=== PATIENT | female | born 1940 | race Caucasian/White ===

== ENCOUNTER 2016-10-26 11:00 | Emergency (ER) | payer MEDICARE, OTHER ==
[~2016-10-26] VITALS: Ht 157.5 cm; Wt 55.0 kg
[~2016-10-26 11:00] MED LIST: ACET1TAB40 PO; ALPR0.254 PO; EVER10TA PO; EXEM25TA PO; OLME5TAB4 PO; PANT40TA4 PO
[2016-10-26 11:04] VITALS: Ht 157.5 cm; Wt 55.0 kg
[2016-10-26] MEDS ORDERED: SOD CHLORIDE 0.9% 500 ML IV STA (12:33)
[2016-10-26 13:10] LABS: HEMATOCRIT 18.2 % (37.0-47.0); MEAN CORPUSCULAR HEMOGLOBIN 28.5 pg (29.0-33.0); MEAN CORPUSCULAR HGB CONC 32.9 g/dl (32.0-37.0); MEAN CORPUSCULAR VOLUME 86.6 fl (82.0-101.0); MEAN PLATELET VOLUME 8.6 fl (7.4-10.4); PLATELET COUNT 261 10^3/UL (140-440); RED CELL DISTRIBUTION WIDTH 21.4 % (11.5-14.5); UNCORRECTED WBC 10.1 10^3/ul (4.8-10.8)
[2016-10-26 13:13] LABS: CONDITION 1; LH ANALYZER COMMENTS 1
[2016-10-26 13:17] LABS: INR 1.08; PT RATIO 1.1
[2016-10-26 13:18] LABS: PARTIAL THROMBOPLASTIN TIME 33.2 Sec (25.0-35.0)
[2016-10-26] MEDS ORDERED: OLME40TA14 PO (13:19)
[2016-10-26] MEDS ORDERED: FER325 PO (13:20)
[2016-10-26] MEDS ORDERED: SOD CHLORIDE 0.9% 250 ML IV ONE (13:32)
[2016-10-26 13:34] LABS: ALBUMIN 2.8 g/dl (3.3-4.9); CHLORIDE 108 mmol/L (97-110); POTASSIUM 3.8 mmol/L (3.5-5.1); SODIUM 141 mmol/L (135-144)
[2016-10-26 13:36] LABS: ANION GAP 13 (8-16); ASPARTATE AMINO TRANSFERASE 66 IU/L (15-46); BILIRUBIN,INDIRECT 0.3 mg/dl (0-1.1); BILIRUBIN,TOTAL 0.3 mg/dl (0.2-1.3); CARBON DIOXIDE 24 mmol/L (21-31); CREATININE 0.83 mg/dl (0.44-1.00)
[2016-10-26 13:37] LABS: ALANINE AMINOTRANSFERASE 41 IU/L (13-69); ALKALINE PHOSPHATASE 162 IU/L (42-121); BLOOD UREA NITROGEN 21 mg/dl (7-20); CALCIUM 8.5 mg/dl (8.4-10.2); GLUCOSE 102 mg/dl (70-220); TOTAL PROTEIN 5.6 g/dl (6.1-8.1)
[2016-10-26 13:51] LABS: TROPONIN-I < 0.010 ng/ml (0.00-0.12)
[2016-10-26 14:34] LABS: BASOPHIL # 0.1 10^3/ul (0.0-0.1); EOSINOPHILS # 0.5 10^3/ul (0.0-0.5); LYMPHOCYTES # 1.4 10^3/ul (0.8-2.9); MONOCYTE # 1.4 10^3/ul (0.3-0.9); MYELOCYTES # 0.2; NEUTROPHIL # 5.4 10^3/ul (1.6-7.5)
--- NOTE | 2016-10-26 15:12 | ERD ---
ER Documentation Chief Complaint Date/Time DATE: 10/26/16 TIME: 15:10 Chief Complaint SENT BY PMD FOR Hb 6.5 HPI This is a 75-year-old female with a history of breast cancer who presents to the emergency room for evaluation of a low hemoglobin. This patient was sent in by her oncologist, Dr. duncan for evaluation of low hemoglobin. The patient is denying any dark stools, and has no complaints of chest pain or shortness of breath at this time. She states that she has gotten a blood transfusion in the past ROS All systems reviewed and are negative except as per history of present illness. Medications Home Meds Active Scripts Pantoprazole* (Pantoprazole*) 40 Mg Tabec, 40 MG PO BID@06,18 for 30 Days Prov:EVERETT ESCOBEDO MD 12/20/15 Reported Medications Ferrous Sulfate* (Ferrous Sulfate*) 325 Mg Tabec, 325 MG PO BID, TAB 10/26/16 Olmesartan Medoxomil (Benicar) 40 Mg Tablet, 40 MG PO DAILY, #30 TAB 10/26/16 Exemestane* (Exemestane*) 25 Mg Tablet, 25 MG PO DAILY, TAB 11/25/15 Everolimus (Afinitor) 10 Mg Tablet, 10 MG PO DAILY, #30 TAB PER PT STOPPED TEMPORARY 11/25/15 Alprazolam* (Alprazolam*) 0.25 Mg Tablet, 0.25 MG PO DAILY, TAB 04/22/15 Acetaminophen-Codeine* (Acetaminophen-Cod #3*) 300-30 Mg Tab, 1 TAB PO DAILY for PAIN, TAB 04/22/15 Discontinued Reported Medications Olmesartan Medoxomil (Benicar) 5 Mg Tablet, PO DAILY, TAB 04/22/15 Allergies Allergies: Coded Allergies: erythromycin base (Verified Allergy, Unknown, upset stomach, 11/25/15) tetracycline (Verified Allergy, Unknown, upset stomach, 11/25/15) PMhx/Soc History of Surgery: Yes (Gall bladder surgery 1971, Hysterectomy 20 yrs. ago) Anesthesia Reaction: No Hx Neurological Disorder: No Hx Respiratory Disorders: Yes (Has lung cancer, metastasis from breast cancer.) Hx Cardiac Disorders: No Hx Psychiatric Problems: No Hx Miscellaneous Medical Probl: No Hx Alcohol Use: No Hx Substance Use: No Hx Tobacco Use: No Physical Exam Vitals Vital Signs Date Time Temp Pulse Resp B/P Pulse Ox O2 Delivery O2 Flow Rate FiO2 10/26/16 11:04 97.8 69 18 97/53 96 Physical Exam INITIAL VITAL SIGNS: Reviewed by me GENERAL: The patient is well developed and appropriate for usual state of health in no apparent distress HEENT: Pupils equal, round, and reactive to light. EOMI. There is no scleral icterus. NECK: C-spine is soft and supple, there is no meningismus. There is no cervical lymphadenopathy. LUNGS: Clear to auscultation bilaterally. There are no rales, wheezes or rhonchi. HEART: Regular rate and rhythm, no murmurs, clicks, rubs or gallops. ABDOMEN: Soft, non-tender, non-distended. There are bowel sounds in all four quadrants. No rebound or guarding. EXTREMITIES: There is no peripheral cyanosis or edema. No focal swelling or erythema. NEUROLOGICAL: The patient moves all four extremities with 5/5 strength. Cranial nerves II - XII are intact. Normal gait. Alert and oriented SKIN: There is no apparent rash or petechiae. HEME/LYMPHATIC: There is no evidence of excessive bruising or lymphedema. PSYCHIATRIC: The patient does not appear anxious or depressed. Result Diagram: 10/26/16 1245 10/26/16 1245 Results 24 hrs Laboratory Tests Test 10/26/16 12:45 Activated Partial Thromboplast Time 33.2Sec Alanine Aminotransferase (ALT/SGPT) 41IU/L Albumin 2.8g/dl Albumin/Globulin Ratio 1.00 Alkaline Phosphatase 162IU/L Anion Gap 13 Aspartate Amino Transf (AST/SGOT) 66IU/L Band Neutrophils % 6.0% Basophils # 0.110^3/ul Basophils % 1.0% Blood Morphology Comment Blood Urea Nitrogen 21mg/dl Calcium Level 8.5mg/dl Carbon Dioxide Level 24mmol/L Chloride Level 108mmol/L Creatinine 0.83mg/dl Differential Comment MANUAL DIFF Direct Bilirubin 0.00mg/dl Eosinophils # 0.510^3/ul Eosinophils % 5.0% Globulin 2.80g/dl Glucose Level 102mg/dl Hematocrit 18.2% Hemoglobin 6.0g/dl INR International Normalized Ratio 1.08 Indirect Bilirubin 0.3mg/dl Lipase 95U/L Lymphocytes # 1.410^3/ul Lymphocytes % 14.0% Mean Corpuscular Hemoglobin 28.5pg Mean Corpuscular Hemoglobin Concent 32.9g/dl Mean Corpuscular Volume 86.6fl Mean Platelet Volume 8.6fl Metamyelocytes # 0.3 Metamyelocytes % 3.0% Monocytes # 1.410^3/ul Monocytes % 14.0% Myelocytes # 0.2 Myelocytes % 2.0% Neutrophils # 5.410^3/ul Neutrophils % 53.0% Nucleated Red Blood Cells # 10^3/ul Nucleated Red Blood Cells % 1.0/100WBC Platelet Count 60803^3/UL Potassium Level 3.8mmol/L Promyelocytes # 0.2 Promyelocytes % 2.0% Prothrombin Time 14.0Sec Prothrombin Time Ratio 1.1 Red Blood Count 2.1010^6/ul Red Cell Distribution Width 21.4% Sodium Level 141mmol/L Total Bilirubin 0.3mg/dl Total Protein 5.6g/dl Troponin I < 0.010ng/ml White Blood Count 10.110^3/ul Current Medications Medications (Trade) Dose Ordered Sig/Burak Route PRN Reason Start Time Stop Time Status Last Admin Dose Admin Sodium Chloride 500 ml @ 500 mls/hr Q1H STAT IV 10/26/16 12:33 10/26/16 13:32 DC 10/26/16 13:30 Sodium Chloride (NS) 250 ml @ 0 mls/hr Q0M ONCE IV 10/26/16 13:32 10/26/16 13:34 DC Procedures/MDM This 75-year-old female presents to the emergency room for evaluation of generalized weakness. She was sent by her oncologist for a low hemoglobin. We carolann lab work urine that does show she has a hemoglobin of 6. I did contact this patient's oncologist, Dr. duncan who states this patient can receive 2 units of packed red blood cells in the emergency room. He states that he tried to get this patient transfuse as an outpatient however he was refused. This patient is in no acute distress at this time will be discharged home on her blood transfusions complete. Critical Care: Time: 33 minutes Treatments/Evaluations: Close monitoring and treatment of unstable vital signs, cardiorespiratory, and neurologic status, while maintaining tight balance of fluid, respiratory, and cardiac interventions, blood product administration. Departure Diagnosis: Primary Impression: Normocytic anemia Additional Impression: Fatigue Condition: Stable LEXIS STANLEY DO Oct 26, 2016 15:12
[2016-10-26 21:20] VITALS: BP 151/78; PULSE 85; RESP 16; TEMP 97.8
[2016-10-27 07:56] LABS: WHITE BLOOD COUNT 10.1 10^3/ul (4.8-10.8)
== END 2016-10-26 21:20 | disposition home or self-care (01) ==
LOC: E/R 11:00
DX: D64.9 Anemia, unspecified (principal); R53.83 Other fatigue; Z85.118 Personal history of other malignant neoplasm of bronchus and lung; Z85.3 Personal history of malignant neoplasm of breast; Z85.830 Personal history of malignant neoplasm of bone
CPT/HCPCS: 36430; 80053; 83690; 84484; 85025; 85610; 85730; 86644; 86850; 86900; 86901; 86920; 93005; J7040; P9016; 36415

== ENCOUNTER 2016-11-18 10:17 | Inpatient (IN) | payer MEDICARE, OTHER ==
[~2016-11-18] VITALS: Ht 157.5 cm; Wt 60.0 kg
[~2016-11-18 10:17] MED LIST changes: +FER325 PO; +OLME40TA14 PO; -OLME5TAB4 PO
[2016-11-18 10:23] VITALS: Ht 157.5 cm; Wt 60.0 kg
[2016-11-18] MEDS ORDERED: SOD CHLORIDE 0.9% 1,000 ML IV STA (10:27)
[2016-11-18] MEDS ORDERED: CEFEPIME 2GM/50 ML (PMX) 50 ML IVPB STA (10:27)
[2016-11-18] MEDS ORDERED: VANCOMYCIN 1 GM (PMX) 250 ML IVPB ONE (10:30)
--- NOTE | 2016-11-18 10:57 | RADRPT ---
PROCEDURE: XR Chest. CLINICAL INDICATION: Shortness of breath TECHNIQUE: Chest AP portable. COMPARISON: 12/17/2015 FINDINGS: The mediastinal structures are unremarkable. There is calcification of the thoracic aorta (consiste nt with atherosclerosis). The heart is normal in size and configuration. The pulmonary vascularity is normal. There is a RLL consolidation. There is left basilar subsegmental atelectasis There is a small right pleural effusion. There are senescent changes of the axial skeleton. IMPRESSION: Calcification of the thoracic aorta (consistent with atherosclerosis) RLL patchy consolidation (query pneumonia) Small right pleural effusion Left basilar subsegmental atelectasis RPTAT: HGDB .Niall Mccann MD, Date Time Electronically viewed and signed by .Niall Mccann MD, on 11/18/2016 10:57 .B/
[2016-11-18 11:23] LABS: BASOPHILS % 0.4 % (0.0-2.0); EOSINOPHILS # 0.3 10^3/ul (0.0-0.5); EOSINOPHILS % 5.4 % (0.0-7.0); HEMATOCRIT 42.3 % (37.0-47.0); HEMOGLOBIN 13.1 g/dl (12.0-16.0); LYMPHOCYTES # 2.4 10^3/ul (0.8-2.9); LYMPHOCYTES % 44.1 % (15.0-51.0); MEAN CORPUSCULAR VOLUME 90.4 fl (82.0-101.0); MEAN PLATELET VOLUME 10.7 fl (7.4-10.4); MONOCYTE # 0.6 10^3/ul (0.3-0.9); MONOCYTES % 11.2 % (0.0-11.0); NEUTROPHIL # 2.1 10^3/ul (1.6-7.5); NEUTROPHILS % 38.5 % (39.0-77.0); PLATELET COUNT 186 10^3/UL (140-415); RED BLOOD COUNT 4.68 10^6/ul (4.20-5.40); RED CELL DISTRIBUTION WIDTH 21.6 % (11.5-14.5); WHITE BLOOD COUNT 5.4 10^3/ul (4.8-10.8)
[2016-11-18 11:28] LABS: ALBUMIN 2.9 g/dl (3.3-4.9)
[2016-11-18 11:29] LABS: INR 0.91; PROTIME 12.3 Sec (12.2-14.2)
[2016-11-18 11:31] LABS: ALBUMIN/GLOBULIN RATIO 0.82; CREATININE 0.74 mg/dl (0.44-1.00); TOTAL PROTEIN 6.4 g/dl (6.1-8.1)
[2016-11-18 11:32] LABS: CALCIUM 9.1 mg/dl (8.4-10.2)
[2016-11-18 11:46] LABS: TROPONIN-I 0.015 ng/ml (0.00-0.12)
[2016-11-18] MEDS ORDERED: ONDANSETRON 4 MG INJ IV STA (12:19)
[2016-11-18] MEDS ORDERED: morphine 4 MG/ML VIAL IV STA (12:19)
[2016-11-18] MEDS ORDERED: ONDANSETRON 4 MG INJ IV PRN ×3 (13:30→21:30)
[2016-11-18] MEDS ORDERED: ACETAMINOPHEN 325 MG TAB PO PRN (13:30)
[2016-11-18] MEDS ORDERED: ACETAMINOPHEN 120 MG SUPP ONE (13:52)
[2016-11-18 14:24] VITALS: PULSE 80; TEMP 97.1
--- NOTE | 2016-11-18 14:42 | ERA ---
ER Documentation Chief Complaint Date/Time DATE: 11/18/16 TIME: 14:39 Chief Complaint SOB since 929 HPI Patient is a 75-year-old female with breast cancer and anemia who presents with shortness of breath. The patient was brought in by ambulance. She said that she had a recent endoscopy and then had shortness of breath and pneumonia afterwards and was admitted for 1 week and [facility] but she was not sure which one. She has a history of breast cancer and takes chemotherapy pills but she does not know which medicine. She says that she was using "puffers" for her shortness of breath. She had cough today and then had back pain as well. She did have a fall 2-3 days ago. She does not use home oxygen. Upon review of old medical records this is the patient's sixth visit to the ER since 2011. Her primary doctor is Dr. Peck. ROS All systems reviewed and are negative except as per history of present illness. Medications Home Meds Active Scripts Pantoprazole* (Pantoprazole*) 40 Mg Tabec, 40 MG PO BID@ for 30 Days Prov:EVERETT ESCOBEDO MD 12/20/15 Reported Medications Ferrous Sulfate* (Ferrous Sulfate*) 325 Mg Tabec, 325 MG PO BID, TAB 10/26/16 Olmesartan Medoxomil (Benicar) 40 Mg Tablet, 40 MG PO DAILY, #30 TAB 10/26/16 Exemestane* (Exemestane*) 25 Mg Tablet, 25 MG PO DAILY, TAB 11/25/15 Everolimus (Afinitor) 10 Mg Tablet, 10 MG PO DAILY, #30 TAB 11/25/15 Alprazolam* (Alprazolam*) 0.25 Mg Tablet, 0.25 MG PO DAILY, TAB 04/22/15 Acetaminophen-Codeine* (Acetaminophen-Cod #3*) 300-30 Mg Tab, 1 TAB PO DAILY for PAIN, TAB 04/22/15 Allergies Allergies: Coded Allergies: erythromycin base (Verified Allergy, Unknown, upset stomach, 11/25/15) tetracycline (Verified Allergy, Unknown, upset stomach, 11/25/15) PMhx/Soc Medical and Surgical Hx: pt denies Surgical Hx History of Surgery: No Anesthesia Reaction: No Hx Neurological Disorder: No Hx Respiratory Disorders: Yes (Met Cancer from Breast Cancer ) Hx Cardiac Disorders: No Hx Psychiatric Problems: No Hx Miscellaneous Medical Probl: Yes (R breast cancer Met to lungs, liver) Hx Alcohol Use: No Hx Substance Use: No Hx Tobacco Use: No Smoking Status: Never smoker FmHx Family History: diabetes Physical Exam Vitals Vital Signs Date Time Temp Pulse Resp B/P Pulse Ox O2 Delivery O2 Flow Rate FiO2 11/18/16 14:24 97.1 80 27 132/62 100 Room Air 2.0 11/18/16 12:30 65 17 181/95 100 Nasal Cannula 2.0 11/18/16 10:30 Nasal Cannula 2.0 11/18/16 10:30 Nasal Cannula 2 11/18/16 10:23 97.1 69 27 209/102 100 Physical Exam Const: No acute Head: Atraumatic Eyes: Normal Conjunctiva ENT: Normal External Ears, Nose and Mouth. Neck: Full range of motion..~ No meningismus. Resp: Decreased breath sounds bilaterally Cardio: Regular rate and rhythm, no murmurs Abd: Soft, non tender, non distended. Normal bowel sounds Skin: No petechiae or rashes Back: No midline or flank tenderness Ext: No cyanosis, or edema Neur: Awake and alert Psych: Normal Mood and Affect Result Diagram: 11/18/16 1030 11/18/16 1030 Results 24 hrs Laboratory Tests Test 11/18/16 10:30 11/18/16 12:45 Activated Partial Thromboplast Time 32.0Sec Alanine Aminotransferase (ALT/SGPT) 48IU/L Albumin 2.9g/dl Albumin/Globulin Ratio 0.82 Alkaline Phosphatase 275IU/L Anion Gap 14 Aspartate Amino Transf (AST/SGOT) 102IU/L Basophils # 0.010^3/ul Basophils % 0.4% Blood Urea Nitrogen 13mg/dl Calcium Level 9.1mg/dl Carbon Dioxide Level 30mmol/L Chloride Level 105mmol/L Creatinine 0.74mg/dl Direct Bilirubin 0.00mg/dl Eosinophils # 0.310^3/ul Eosinophils % 5.4% Globulin 3.50g/dl Glucose Level 87mg/dl Hematocrit 42.3% Hemoglobin 13.1g/dl INR International Normalized Ratio 0.91 Indirect Bilirubin 1.0mg/dl Lactic Acid Level 2.1mmol/L 1.4mmol/L Lymphocytes # 2.410^3/ul Lymphocytes % 44.1% Mean Corpuscular Hemoglobin 28.0pg Mean Corpuscular Hemoglobin Concent 31.0g/dl Mean Corpuscular Volume 90.4fl Mean Platelet Volume 10.7fl Monocytes # 0.610^3/ul Monocytes % 11.2% Neutrophils # 2.110^3/ul Neutrophils % 38.5% Nucleated Red Blood Cells # 0.010^3/ul Nucleated Red Blood Cells % 0.0/100WBC Platelet Count 12206^3/UL Potassium Level 4.0mmol/L Prothrombin Time 12.3Sec Prothrombin Time Ratio 1.0 Red Blood Count 4.6810^6/ul Red Cell Distribution Width 21.6% Sodium Level 145mmol/L Total Bilirubin 1.0mg/dl Total Protein 6.4g/dl Troponin I 0.015ng/ml White Blood Count 5.410^3/ul Current Medications Medications (Trade) Dose Ordered Sig/Burak Route PRN Reason Start Time Stop Time Status Last Admin Dose Admin Cefepime HCl 50 ml @ 100 mls/hr ONCE STAT IVPB 11/18/16 10:27 11/18/16 10:56 DC 11/18/16 11:06 Vancomycin HCl 250 ml @ 125 mls/hr ONCE ONCE IVPB 11/18/16 10:30 11/18/16 12:29 DC 11/18/16 12:12 Sodium Chloride (NS) 1,000 ml @ 1,000 mls/hr Q1H STAT IV 11/18/16 10:27 11/18/16 11:26 DC 11/18/16 11:07 Morphine Sulfate (morphine) 4 mg ONCE STAT IV 11/18/16 12:19 11/18/16 12:21 DC 11/18/16 12:26 Ondansetron HCl (Zofran Inj) 4 mg ONCE STAT IV 11/18/16 12:19 11/18/16 12:21 DC 11/18/16 12:25 Ondansetron HCl (Zofran Inj) 4 mg BRIDGE ORDER PRN IV NAUSEA AND/OR VOMITING 11/18/16 13:30 11/19/16 13:29 Acetaminophen (Tylenol Tab) 650 mg ER BRIDGE PRN PO MILD PAIN/FEVER 11/18/16 13:30 11/19/16 13:29 Acetaminophen (Tylenol Supp) 120 mg STK-MED ONCE .ROUTE 11/18/16 13:52 11/18/16 13:53 DC Procedures/MDM EKG read by me: Rate/Rhythm: Regular rate and rhythm at a normal rate Intervals: Normal Impression: No evidence of ischemia or arrhythmia Chest x-ray shows pneumonia per radiology. Admit MDM: Patient's infectious symptoms have not stabilized and the patient is at risk of rapid decompensation. The patient will be admitted for careful hydration, antibiotic therapy, and infectious source control. Severe Sepsis criteria: Infectious source: Pneumonia End organ damage indicated by: Lactate greater than 2 Sepsis Management: Time of recognition of sepsis: 10:30 Within 3 hours of recognition: Blood cultures x 2 before broad-spectrum antibiotics: Yes 30 ml/kg NS bolus Completed Initial lactate 2.1 Repeat lactate 1.4 Time of recognition of septic shock: No septic shock Septic Shock Assessment: Any lactic acid > 4.0 No Persistent hypotension (SBP < 90 or 40 mmHg drop, MAP < 65) despite 30 mL/kg IV fluid bolus No Volume Re-assessment for Septic Shock (post 30 ml/kg bolus): No septic shock at this time Persistent Hypotension Treatment: Comfort care No Central line Not Required Vasopressor started Not required I considered further perfusion assessment with CVP measurement, SCVO2, bedside ultrasound volume assessment, passive leg raise, trial of further fluid bolus. And proceeded with 30 ml/kg fluid bolus of NSS, broad spectrum antibiotics, and admission. Accepting Care Team Current data and ongoing care discussed. Admitting Physician: I spoke with Dr. Ruiz who will do the admission orders but asked me to put the admission under Dr. Peck the primary doctor College Teacher(s): None Outstanding Data: Culture results Critical Care: Critical care time 35 minutes excluding all billable procedures Emergent fluid management while maintaining close respiratory support. Provision of immediate and broad-spectrum antibiotic therapy. Simultaneous assessment for possible sources in order to direct targeted therapy. Consideration for invasive and chemical support to prevent cardiopulmonary collapse. Departure Diagnosis: Primary Impression: Shortness of breath Additional Impressions: Pneumonia Qualified Code: J18.9 - Pneumonia due to infectious organism, unspecified laterality, unspecified part of lung Severe sepsis MARYAM CHOUDHARY MD Nov 18, 2016 14:41
[2016-11-18 14:54] VITALS: BP 173/76; RESP 20
[2016-11-18] MEDS ORDERED: ACETAMINOPHEN/CODEINE #3 TAB PO PRN (18:30)
[2016-11-18] MEDS ORDERED: ALPRAZOLAM 0.25 MG TAB PO PRN (18:30)
[2016-11-18] MEDS: METOPROLOL (XL) 50 MG TAB PO SCH (18:59)
[2016-11-18] MEDS ORDERED: ALBUTEROL/IPRATROPIUM (NEB) 3 ML AMP HHN PRN (19:00)
[2016-11-18] MEDS ORDERED: HYDROmorphONE 1 MG/ML SYG IV PRN ×2 (19:00→21:30)
[2016-11-18] MEDS ORDERED: NA PHOSPHATE/BIPHOS 133 ML ENEMA PR PRN (19:00)
[2016-11-18] MEDS ORDERED: NACL 0.9% 3 ML SYG IV SCH ×2 (19:00→21:30)
[2016-11-18] MEDS ORDERED: MAGNESIUM HYDROXIDE 30ML CUP PO PRN ×2 (19:00→21:30)
[2016-11-18] MEDS ORDERED: BISACODYL 10 MG SUPP PR PRN (19:00)
[2016-11-18] MEDS ORDERED: BISACODYL (EC) 5 MG TAB PO PRN (19:00)
[2016-11-18] MEDS: [UNRECOGNIZED DRUG - REMARK] XX SCH (19:00)
[2016-11-18] MEDS ORDERED: IBUPROFEN 600 MG TAB PO PRN (19:00)
[2016-11-18 20:14] VITALS: BP 189/84; RESP 18
[2016-11-18] MEDS: FERROUS SULFATE (EC) 325 MG TAB PO SCH (21:00)
--- NOTE | 2016-11-18 22:19 | HP ---
Date/Time of Note Date/Time of Note DATE: 11/18/16 TIME: 21:38 Assessment/Plan VTE Prophylaxis VTE Prophylaxis Intervention: ambulation, SCD's Lines/Catheters IV Catheter Type (from Nrsg): Saline Lock Central line still needed: No Urinary Cath still in place: No Assessment/Plan Problems: (1) Back pain Status: Acute Comment: Patient with metastasis to bone. Will obtain CT of thoracic spine to rule out pathologic compression fracture. Pain management with oxycontin and dilaudid Qualifiers: Back pain location: thoracic back pain Chronicity: acute (2) Pleural effusion Comment: Malignant versus infectious (3) Lung consolidation Comment: Metastatic lesions with possible post obstructive pneumonia. Will obtain CT of the chest. (4) Hypertension Comment: Adjust antihypertensive agents to get BP to goal. Qualifiers: Hypertension type: essential hypertension Qualified Code: I10 - Essential hypertension (5) Breast cancer metastasized to multiple sites Status: Chronic Comment: Will contact Dr. Shearer for further management decisions. Assessment/Plan 75 year old woman with metastatic breast cancer to bone and lung now with possible vertebral fracture and possible recurrent post obstructive pneumonia versus lung mets. HPI/ROS Admit Date/Time Admit Date/Time Nov 18, 2016 at 13:23. Patient seen at 18:45 Hx of Present Illness 75 year old woman with metastatic lung cancer recently hospitalized at [facility] for shortness of breath which she developed after an endoscopy. She was diagnosed with post obstructive pneumonia . Mrs. Gao was discharged 2 weeks ago and sent home with antibiotics (which she finished Tuesday) and an inhaler which she has continued to use. She was doing relatively well until yesterday when she made a sudden twisting movement, heard a pop sound in her back and developed excruciating pain to her mid back region. The pain subsided throughout the day, but this morning had a recurrent incident with pain so intense it caused shortness of breath. She has known lung and bone metastasis and a CXR while in the DEM show suggestive evidence of RLL patchy infiltrate with pleural effusion. At present she denies shortness of breath and states her pain is currently controlled with pain medication. She is being admitted for pain management and further evaluation of possible post obstructive pneumonia. ROS Eyes: no complaints ENT: no complaints Respiratory: cough (some non productive cough), pleuritic pain (none), shortness of breath (not at this time), wheezing (occassional) Cardiovascular: no complaints Gastrointestinal: no complaints Genitourinary: no complaints Musculoskeletal: back pain (thoracic spine especially with movement and coughing) Skin: no complaints Neurologic: other (anxiety and claustrophobia) Endocrine: no complaints Lymphatic: no complaints Psychological: no complaints Immunologic: no complaints PMH/Family/Social Past Medical History Medical History: cancer (metastatic breast cancer), diverticulitis (s/p resection), GI bleed, hypertension, other (anemia) Past Surgical History Past Surgical Hx: cholecystectomy, endoscopy, other (hysterectomy colectomy) Family History Significant Family History: no pertinent family hx Social History and lives with Alcohol Use: none Smoking Status: Never smoker Drug Use: none Exam/Review of Systems Vital Signs Vitals Vital Signs Date Time Temp Pulse Resp B/P Pulse Ox O2 Delivery O2 Flow Rate FiO2 11/18/16 20:14 98.5 67 18 189/84 95 11/18/16 14:24 Room Air 2.0 Exam Constitutional: alert, oriented, other (speaking in full sentences), well developed Psych: nl mood/affect Head: atraumatic, normocephalic Eyes: EOMI, PERRL, nl conjunctiva ENMT: mucosa pink and moist Neck: bruits (none), jvd (none), non-tender, supple Respiratory: diminished breath sounds (right base), intercostal retraction ( none), labored breathing (none), wheezing Cardiovascular: nl pulses, regular rate and rhythm Gastrointestinal: non-tender, soft Musculoskeletal: nl extremities to inspection Extremities: normal pulses Neurological: nl mental status, nl speech Skin: nl turgor Labs Result Diagram: 11/18/16 1030 11/18/16 1030 Medications Medications Current Medications Acetaminophen/ Codeine Phosphate (Tylenol No.3) 2 tab Q4 PRN PO MODERATE PAIN LEVEL 4-6; Start 11/18/16 at 18:30 Alprazolam (Xanax) 0.25 mg TID PRN PO ANXIETY; Start 11/18/16 at 18:30 Exemestane (Aromasin) 25 mg DAILY PO ; Start 11/19/16 at 09:00 Ferrous Sulfate (Ferrous Sulfate (Ec)) 325 mg BID PO ; Start 11/18/16 at 21:00 Pantoprazole (Protonix Tab) 40 mg BID@06,18 PO ; Start 11/19/16 at 06:00 Miscellaneous Information 10 mg DAILY XX ; Start 11/19/16 at 09:00; Status UNV Losartan Potassium (Cozaar) 100 mg DAILY PO ; Start 11/19/16 at 09:00 Metoprolol Succinate (Toprol Xl) 50 mg DAILY PO Last administered on 11/18/16t 18:59; Admin Dose 50 MG; Start 11/18/16 at 19:00 Amlodipine Besylate (Norvasc) 5 mg DAILY PO ; Start 11/19/16 at 09:00 Miscellaneous Information (*Order Clarification Bulletin) MEDICATION REQUIRES CLARIFICATION: Q8H XX ; Start 11/18/16 at 19:00 Oxycodone HCl (Oxycontin) 10 mg BID PO ; Start 11/18/16 at 21:00 Albuterol/ Ipratropium (Duoneb) 3 ml Q4 PRN HHN SHORTNESS OF BREATH; Start 07/26 at 09:00; Stop 11/22/16 at 08:59; Status UNV Hydromorphone HCl (Dilaudid) 1 mg Q4H PRN IV PAIN; Start 11/18/16 at 21:30; Status UNV Ondansetron HCl (Zofran Inj) 4 mg Q6H PRN IV NAUSEA AND/OR VOMITING; Start 11/18 at 21:30; Status UNV Magnesium Hydroxide (Milk Of Mag) 30 ml DAILY PRN PO CONSTIPATION; Start at 21:30; Status UNV PAYTON RAMOS MD Nov 18, 2016 21:49
[2016-11-18] MEDS: oxyCODONE (CR) 10 MG TAB [oxyCONTIN] PO SCH (22:22)
[2016-11-19] MEDS: [UNRECOGNIZED DRUG - REMARK] XX SCH ×2 (02:56→11:00)
[2016-11-19] MEDS: PANTOPRAZOLE (EC) 40 MG TAB PO SCH ×2 (06:29→17:48)
[2016-11-19] MEDS ORDERED: VANCOMYCIN IV PER PHARMACY XX SCH (07:30)
[2016-11-19 07:57] VITALS: BP 139/67; RESP 18
[2016-11-19] MEDS: EXEMESTANE 25 MG TAB PO SCH ×2 (09:00→16:48)
[2016-11-19] MEDS ORDERED: ENOXAPARIN 30 MG/0.3 ML SYG SC SCH (09:00)
[2016-11-19] MEDS ORDERED: VANCOMYCIN 1.25 GM in SOD CHLORIDE 0.9% 250 ML IVPB ONE (09:00)
[2016-11-19] MEDS ORDERED: TIOTROPIUM 18 MCG CAPSULE INHA DEV INH SCH (09:00)
[2016-11-19] MEDS ORDERED: EVEROLIMUS 10 MG XX SCH (09:00)
[2016-11-19] MEDS ORDERED: ALBUTEROL/IPRATROPIUM (NEB) 3 ML AMP HHN PRN (09:00)
[2016-11-19] MEDS: oxyCODONE (CR) 10 MG TAB [oxyCONTIN] PO SCH ×2 (09:38→20:48)
[2016-11-19] MEDS: FERROUS SULFATE (EC) 325 MG TAB PO SCH ×2 (09:38→20:47)
[2016-11-19] MEDS: AMLODIPINE 5 MG TAB PO SCH (09:39)
[2016-11-19] MEDS: LOSARTAN 50 MG TAB PO SCH (09:39)
[2016-11-19] MEDS: METOPROLOL (XL) 50 MG TAB PO SCH (09:40)
[2016-11-19] MEDS ORDERED: IODIXANOL LOCM 100 ML BTL ONE ×2 (10:34→10:35)
[2016-11-19] MEDS ORDERED: SOD CHLORIDE 0.9% 100 ML ONE (10:35)
--- NOTE | 2016-11-19 12:00 | RADRPT ---
PROCEDURE: CT thoracic spine without contrast. CLINICAL INDICATION: Thoracic spine pain. History of metastatic breast cancer. TECHNIQUE: The study was performed utilizing a multislice multidetector CT scanner. Direct spiral 1 mm axial sections were obtained through the thoracic spine without contrast. Coronal and sagittal reformations were obtained. The images were reviewed on a PACS workstation. RADIATION DOSE: CTDIvol: 9.6 mGyDLP: 344.6 mGy-cm COMPARISON: No prior studies are available for comparison. FINDINGS: The alignment of the thoracic spine is within normal limits. The vertebral body heights appear main tained. There is no evidence of pathologic fracture at this time There is diffuse, extensive hetero geneity throughout the thoracic spine with extensive infiltrative lytic and sclerotic lesions throug hout the thoracic spine, compatible with given patient history of metastatic breast cancer. There i s subtle heterogeneity of the posterior T10 vertebral body (sagittal series image 58). The remainin g vertebral bodies appear to have intact margins. There are diffuse anterior osteophytes with mild n arrowing of the intervertebral discs in the mid and lower thoracic spine. No significant discogenic endplate changes are seen. The paraspinal soft tissues unremarkable. There is no significant narr owing of the thoracic thecal sac or neural foramina. On axial images, the posterior margin of the di sc, thecal sac and neural foramina are patent at all levels. There is a prominent right-sided pleural effusion, partially visualized measuring at least 4.2 cm in diameter. There is partial visu alization of a left-sided pleural effusion. The lung parenchyma is better demonstrated on the CT ch est obtained the same day. There is also sclerosis and multiple posterior ribs. There is a nondispl aced fracture in the lateral right seventh rib (axial series image 52). There is suggestion of a no ndisplaced fracture in the posterior right sixth rib (axial series image 41). IMPRESSION: 1. Extensive heterogeneity throughout the thoracic spine compatible with given patient history of m etastatic breast cancer. There is subtle heterogeneity involving the superior - posterior T10 endpl ate, which is nonspecific. This may be related to small cyst in this region, however erosion throug h the posterior cortex is not excluded. MRI of the thoracic spine with without contrast is recommen ded to exclude epidural extension of tumor. 2. Diffuse mild to moderate degenerative disc disease in the mid and lower thoracic spine. 3. Nondisplaced fracture in the posterior right seventh rib. 4. Prominent right-sided pleural effusion with partial visualization of smaller left-sided pleural effusion. Please see CT report of the chest obtained same day for further information. RPTAT: DD .Jurgen Haque MD, MD Date Time Electronically viewed and signed by .Jurgen Haque MD, MD on 11/19/2016 12:00 .S/
--- NOTE | 2016-11-19 12:51 | RADRPT ---
PROCEDURE: CT CHEST WITH CONTRAST CLINICAL INDICATION: Evaluate for metastatic lesions TECHNIQUE: Volumetrically acquired images of the thorax obtained with intravenous contrast were re formatted in the axial, coronal, and sagittal planes. CTDI = 6.5 mGy; DLP = 245 mGy-cm. 90 cc of Vi sipaque was administered. One or more of the following dose reduction technique were used: Automati c exposure control, adjustment of the mA and/or kV according to patient size, and use of iterative r econstruction technique. COMPARISON: 11/18/2016. FINDINGS: LOWER NECK AND CHEST WALL: Normal. AIRWAYS: The trachea and large airways are normal. Minimal bronchial wall thickening is seen. LUNGS: Clear. No suspicious nodules, masses, or consolidation. PLEURA: Moderate bilateral pleural effusions are seen with associated atelectasis. MEDIASTINUM: No mediastinal mass. LYMPH NODES: No significant axillary, hilar, or mediastinal lymphadenopathy by CT size criteria. CARDIAC: The heart size is normal. No pericardial effusion. VASCULAR: The aorta and main pulmonary artery are normal in caliber. Aortic and coronary atheroscl erotic calcifications are present. OSSEOUS: Diffuse sclerotic metastasis are seen throughout the thoracic skeleton and ribs. Scattered degenerative changes of the thoracic spine is visualized. Limited evaluation of the upper abdomen demonstrates moderate left hydronephrosis. There is a 4.6 cm benign appearing renal cyst seen in the liver. Multiple hypoenhancing lesions are seen in the sple en. IMPRESSION: 1. Moderate bilateral pleural effusions with associated atelectasis. 2. Mild atherosclerosis. 3. Diffuse sclerotic metastasis are seen in the bilateral ribs and thoracic vertebral body. 4. Moderate left hydronephrosis. Consider CT abdomen and pelvis to evaluate for distal obstruction . 5. Multiple hypoenhancing lesions in the spleen are suspicious for metastasis. RPTAT:PP .Gil Kimball MD, MD Date Time Electronically viewed and signed by .Gil Kimball MD, MD on 11/19/2016 12:51 .V/
[2016-11-19] MEDS ORDERED: EVEROLIMUS 10 MG PO SCH (13:00)
--- NOTE | 2016-11-19 15:42 | CONS ---
DATE OF ADMISSION: 11/18/2016 DATE OF CONSULTATION: 11/19/2016 TYPE OF CONSULTATION: Medical oncology consultation. REQUESTING PHYSICIANS: PAYTON RUIZ MD and EVERETT ESCOBEDO MD. REASON FOR CONSULTATION: Metastatic breast carcinoma. Dear Drs. Ruiz and Karmen: Thank you very much for asking me to see this very interesting and pleasant patient in oncologic con sultation. As you know, Ms. Goa is a 75-year-old female who has a known diagnosis of metastatic breast carcinoma. The patient apparently was originally diagnosed in approximately 2012. At that t fermin, the patient did have a breast mass which was biopsied which showed evidence of breast carcinom a which was apparently estrogen and progesterone receptor positive. At the time of presentation, the patient did have evidence of metastatic disease. The patient at at time had diffuse skeletal metastases, bilateral pulmonary metastases and bilateral pleural diseas e as well as a 4 cm mass in the dome of the liver. The patient originally was treated with Arimidex, but more recently has been switched to a combinati on of exemestane and Afinitor (everolimus). The patient was recently hospitalized at [facility]. This hospitalization took place after the patient had undergone an upper GI endoscopy for cauterization of gastric telangiectasias. Followin g this, the patient apparently had an aspiration pneumonia and was hospitalized at [facility] b ecause of sudden shortness of breath. The patient has since recovered from this. The patient is now admitted to [facility] with complaints of back pain. The patie nt actually states that she fell at home 2 or 3 days ago. Since that time, the patient has had sign ificant pain in the thoracic area of her chest with cough. The patient now has not complained of an y shortness of breath. She has had cough, but as mentioned, no hemoptysis. As noted, the patient d oes have known skeletal metastases. On admission to the hospital at this time, the patient has had a chest x-ray which demonstrates a ri ght lower lobe patchy consolidation and a small right pleural effusion. There is left basilar subs egmental atelectasis. A CT scan of the thoracic spine showed extensive changes consistent with meta static breast carcinoma. There was no obvious compression fracture. There is a nondisplaced rib fr acture of the right 7th rib posteriorly. There is also a prominent right-sided pleural effusion and a small left-sided effusion. On admission, the patient's white count 5400, hemoglobin 13.1, hematocrit 42.3 and platelet count 18 6,000. Sodium 145, potassium 4, creatinine 0.74, BUN 13, total bilirubin 1, indirect bilirubin 1, A ST 104, ALT 48, alkaline phosphatase 275. Troponin I 0.015. The patient's past history includes a history of cancer of the breast. She has also had carcinoma o f the uterus. She has had diverticulosis and AVMs in the gastrointestinal tract. PAST SURGICAL HISTORY: In the past have included breast biopsy as well as cholecystectomy, partial colectomy and a hysterectomy with bilateral salpingo-oophorectomy. SOCIAL HISTORY: The patient is . She has never smoked and does not use alcohol. ALLERGIES: APPARENTLY INCLUDE ERYTHROMYCIN AND TETRACYCLINE. MEDICATIONS: On admission included: 1. Exemestane 25 mg daily. 2. Afinitor 10 mg daily. 3. Alprazolam 0.25 mg 3 times a day p.r.n. 4. Ferrous sulfate 325 mg p.o. b.i.d. 5. Pantoprazole 40 mg daily. 6. Losartan 100 mg daily. 7. Metoprolol XL 50 mg daily. 8. OxyContin 10 mg p.o. b.i.d. 9. Albuterol and ipratropium inhaler. 10. Hydromorphone 1 mg q.4h. p.r.n. 11. Ondansetron 4 mg p.r.n. nausea and vomiting. PHYSICAL EXAMINATION GENERAL: At this time reveals a well-developed elderly female in no acute distress. VITAL SIGNS: Temperature 98.3, pulse 70 per minute and regular, respirations 18, blood pressure 136 /76, pulse oximetry is 98% on 2 liters of oxygen by nasal cannula. SKIN: No ecchymoses. No petechiae or rashes. HEENT: Normocephalic. No evidence of trauma. The pupils are equal, round, react to light and acco mmodation. Sclerae are nonicteric. Oral mucosa is moist without lesions. Tongue is well papillate d. There is no gingival hyperplasia, no hypertrophy of Waldeyer ring, no mucosa telangiectasias. T here is nasal oxygen in place. NECK: Supple, no jugular venous distention or thyroid enlargement. CHEST: Decreased breath sounds and dullness to percussion on the right base. Some pain on palpatio n of the ribs on the right posteriorly. No rubs are heard, no wheezes. HEART: Regular sinus rhythm, no S3, S4 or murmurs. ABDOMEN: Soft, no masses, no ascites. EXTREMITIES: Good range of motion. No clubbing or cyanosis. There is some pedal edema. NEUROLOGIC: Normal. BREASTS: There are no palpable masses at this time. DISCUSSION: This patient does have a known metastatic breast carcinoma. At the time of her diagnos is in 2012. The patient already had evidence of skeletal as well as bilateral pleural and pulmonary metastases. The patient has done remarkably well on hormone therapy alone. She has never received cytotoxic ia motherapy. As noted, the patient had been taking combination of exemestane and everolimus. Unfortunately, the everolimus (Afinitor) is associated with a noninfectious pneumonitis in approxima tely 5% of patients. It is unclear whether the findings on x-ray at this time are actually any diff erent than the chronic findings the patient has had. Given her recent respiratory symptoms and find ings on x-ray; however, I would suggest holding the everolimus at this time. The patient can continue the exemestane (Aromasin) 25 mg per day. I feel that the patient's chest pain is actually due to rib fracture suffered from the patient's rec ent fall. We will get a rib series. Once again, thank you very much for the opportunity of participating in the medical care of this edson y interesting and pleasant patient. I will be happy to follow this patient with you in her oncologi c evaluation and follow up as necessary. Dictated By: INEZ MOJICA MD SR/NTS Conf#: [id number] DID#: [id number]
--- NOTE | 2016-11-19 16:42 | RADRPT ---
PROCEDURE: XR right ribs . CLINICAL INDICATION: Right-sided chest pain with history of metastatic breast cancer. TECHNIQUE: AP and oblique views of the ribs were obtained. COMPARISON: No. FINDINGS: There is a loculated right pleural effusion. There are infiltrates in the right lung with intermixe d areas of atelectasis in the lower periphery of the right upper lobe. A lucent area parallels the right chest wall in the AP view which is not seen in the oblique views. This likely represents a sk in line and not a pneumothorax. A left lateral decubitus view can be performed to exclude a pneumot horax if needed. No pneumothorax is present on the CT chest performed earlier this same day at 11/19 at 10:16 a.m. The heart is enlarged. No acute rib fracture is identified. Degenerative osteophytes are present in the thoracic and lumba r spine. The radiograph is underpenetrated. Osteoblastic bone metastases are noted in the thoracic and lumbar spine. Contrast is noted in the renal collecting systems. There is a 3 cm nodular density projecting in the medial aspect of the right lower lobe. Follow-up i maging is recommended to insure this clears consistent with rounded atelectasis and that no underlyi ng obscured pulmonary nodule is present. IMPRESSION: 1. There is a loculated right pleural effusion with diffuse bone metastases involving the thoracic spine. 2. Although no acute rib fracture is identified on the rib series, an acute rib fracture is noted i nvolving the posterior lateral eighth rib as depicted on the CT scan of 11/19/2016. Also there is a subacute healing fracture of the posterior right seventh rib depicted on the CT scan of November 19, 2016 at 10:00 a.m. earlier this same day. 3. Osteoblastic bone metastases involving the thoracic and lumbar spine. 4. 3 cm nodular density medial aspect right lower lobe. Follow-up imaging recommended to ensure no underlying pulmonary nodule is present. This may represent rounded atelectasis. 5. Findings were phoned to [facility]. A read back was performed. RPTAT:AAJJ Physician Raegan Date Time Electronically viewed and signed by Physician Raegan on 11/19/2016 16:42 MARIANA/
[2016-11-19] MEDS ORDERED: HYDROCORTISONE 100 MG INJ IV ONE (17:30)
--- NOTE | 2016-11-19 17:32 | PN ---
Date/Time of Note Date/Time of Note DATE: 11/19/16 TIME: 17:30 Assessment/Plan VTE Prophylaxis VTE Prophylaxis Intervention: other Lines/Catheters IV [facility]ter [facility]from [facility] Saline Lock Urinary Cath still in place: No Assessment/Plan Problems: (1) Shortness of breath Status: Acute Comment: Patient has wheezing and had a recent reported pneumonia. In addition she has pleural effusions. I discussed with her the possibility of draining 1 of the pleural effusions at this time she declined stating I am not good with needles (2) Pneumonia Status: Acute Comment: She is on antibiotics. Please note her blood culture was positive however this may represent a simple contaminant we will know by tomorrow for now she is on vancomycin for the gram-positive cocci in clusters Qualifiers: Pneumonia type: due to unspecified organism Laterality: unspecified laterality Lung location: unspecified part of lung Qualified Code: J18.9 - Pneumonia due to infectious organism, unspecified laterality, unspecified part of lung (3) Hypertension Status: Chronic Comment: Adequate control on medicines Qualifiers: Hypertension type: essential hypertension Qualified Code: I10 - Essential hypertension (4) Pleural effusion Status: Acute Comment: Patient declines to have thoracentesis so far (5) Breast cancer metastasized to multiple sites Status: Chronic Comment: Please see the dictation of Dr. Landers continued care Subjective 24 Hr Interval Summary Free Text/Dictation Patient sitting in bed does note some wheezing and complains of some dyspnea Constitutional: no complaints (Denies fever chills or sweats) Cardiovascular: no complaints Gastrointestinal: no complaints Exam/Review of Systems Vital Signs Vitals Vital Signs Date Time Temp Pulse Resp B/P Pulse Ox O2 Delivery O2 Flow Rate FiO2 11/19/16 15:48 2.0 11/19/16 08:30 Nasal Cannula 11/19/16 07:57 98.3 69 18 139/67 98 Intake and Output 11/18/16 11/18/16 11/19/16 15:00 23:00 07:00 Intake Total 1050 ml 200 ml Balance 1050 ml 200 ml Exam Constitutional: alert, oriented Neck: non-tender, supple Respiratory: wheezing Cardiovascular: nl pulses, regular rate and rhythm Results Result Diagram: 11/18/16 1030 11/18/16 1030 Results 24 hrs Laboratory Tests Test 11/18/16 17:36 Lactic Acid Level 1.4 Medications Medications Current Medications Acetaminophen/ Codeine Phosphate (Tylenol No.3) 2 tab Q4 PRN PO MODERATE PAIN LEVEL 4-6; Start 11/18/16 at 18:30 Alprazolam (Xanax) 0.25 mg TID PRN PO ANXIETY Last administered on 11/18/16 22: 21; Admin Dose 0.25 MG; Start 11/18/16 at 18:30 Exemestane (Aromasin) 25 mg DAILY PO Last administered on 11/19/16 16:48; Admin Dose 25 MG; Start 11/19/16 at 09:00 Ferrous Sulfate (Ferrous Sulfate (Ec)) 325 mg BID PO Last administered on 09:38; Admin Dose 325 MG; Start 11/18/16 at 21:00 Pantoprazole (Protonix Tab) 40 mg BID@06,18 PO Last administered on 11/19/16 06:29; Admin Dose 40 MG; Start 11/19/16 at 06:00 Losartan Potassium (Cozaar) 100 mg DAILY PO Last administered on 11/19/16 09: 39; Admin Dose 100 MG; Start 11/19/16 at 09:00 Metoprolol Succinate (Toprol Xl) 50 mg DAILY PO Last administered on 11/19/16 09:40; Admin Dose 50 MG; Start 11/18/16 at 19:00 Amlodipine Besylate (Norvasc) 5 mg DAILY PO Last administered on 11/19/16 09: 39; Admin Dose 5 MG; Start 11/19/16 at 09:00 Oxycodone HCl (Oxycontin) 10 mg BID PO Last administered on 11/19/16 09:38; Admin Dose 10 MG; Start 11/18/16 at 21:00 Hydromorphone HCl (Dilaudid) 1 mg Q4H PRN IV PAIN; Start 11/18/16 at 21:30 Ondansetron HCl (Zofran Inj) 4 mg Q6H PRN IV NAUSEA AND/OR VOMITING; Start 11/18 at 21:30 Magnesium Hydroxide 30 ml 30 ml DAILY PRN PO CONSTIPATION; Start 11/18/16 at 21: 30 Vancomycin HCl (Vancocin) 250 ml @ 125 mls/hr Q24H IVPB ; Start 11/20/16 at 12: 00 Patient Own Medication 1 ea DAILY PO ; Start 11/19/16 at 13:00 EVERETT ESCOBEDO MD Nov 19, 2016 17:32
[2016-11-19] MEDS: SALMETEROL/FLUTICASONE 250/50 INHA INH SCH (20:47)
[2016-11-19 21:23] VITALS: BP 144/66; RESP 20
[2016-11-20] MEDS: PANTOPRAZOLE (EC) 40 MG TAB PO SCH (05:56)
[2016-11-20 06:18] LABS: CREATININE 0.77 mg/dl (0.44-1.00)
[2016-11-20 08:01] VITALS: BP 130/63; RESP 16
[2016-11-20] MEDS: oxyCODONE (CR) 10 MG TAB [oxyCONTIN] PO SCH (09:24)
[2016-11-20] MEDS: AMLODIPINE 5 MG TAB PO SCH (09:24)
[2016-11-20] MEDS: LOSARTAN 50 MG TAB PO SCH (09:25)
[2016-11-20] MEDS: METOPROLOL (XL) 50 MG TAB PO SCH (09:25)
[2016-11-20] MEDS: FERROUS SULFATE (EC) 325 MG TAB PO SCH (09:25)
[2016-11-20] MEDS: EXEMESTANE 25 MG TAB PO SCH (09:30)
[2016-11-20] MEDS: SALMETEROL/FLUTICASONE 250/50 INHA INH SCH (09:31)
--- NOTE | 2016-11-20 11:00 | PDOCDIS ---
Discharge Instructions DIAGNOSIS Discharge Diagnosis: Post-obstructive pneumonia secondary to metastatic breast cancer CONDITION Patient Condition: Serious HOME CARE INSTRUCTIONS: Diet Instructions: RegularSpecial Diet: SOFT ACTIVITY: Activity Restrictions: No Restrictions Bathing Restrictions: Shower FOLLOW UP/APPOINTMENTS Appointments f/u w/ Dr. Shearer 1-2 weeks f/u w/ Dr. Peck 1-2 weeks DERRELL GRANDE MD Nov 20, 2016 11:00
[2016-11-20] MEDS ORDERED: OXYC10TA63 PO (11:09)
[2016-11-20] MEDS ORDERED: METO50TA16 PO (11:09)
[2016-11-20] MEDS ORDERED: AMLO-145 PO (11:09)
[2016-11-20] MEDS ORDERED: ADV25050 INH (11:09)
[2016-11-20] MEDS ORDERED: ALBU8.5H3 INH (11:09)
[2016-11-20] MEDS ORDERED: HYDR2TAB15 PO (11:09)
[2016-11-20] MEDS ORDERED: CLIN-73 PO (11:09)
--- NOTE | 2016-11-20 11:17 | DS ---
Date/Time of Note Date/Time of Note DATE: 11/20/16 TIME: 11:11 Discharge Summary Admission/Discharge Info Admit Date/Time Nov 18, 2016 at 13:23 Discharge Date/Time 11/20/2016 @ 1100 Final Diagnosis post-obstructive pneumonia secondary to metastatic breast cancer Patient Condition: Serious Consults Anshul: oncology Procedures CT chest/thoracic spine: extensive metastases in spine both thoracic and lumbar , (+) old 7th and new 8th rib fractures, (+) loculated R pleural effusion. (+) evidence of splenic metastases and hydronephrosis. Hx of Present Illness 75 year old woman with metastatic lung cancer recently hospitalized at [facility] for shortness of breath which she developed after an endoscopy. She was diagnosed with post obstructive pneumonia . Mrs. Gao was discharged 2 weeks ago and sent home with antibiotics (which she finished Tuesday) and an inhaler which she has continued to use. She was doing relatively well until yesterday when she made a sudden twisting movement, heard a pop sound in her back and developed excruciating pain to her mid back region. The pain subsided throughout the day, but this morning had a recurrent incident with pain so intense it caused shortness of breath. She has known lung and bone metastasis and a CXR while in the DEM show suggestive evidence of RLL patchy infiltrate with pleural effusion. At present she denies shortness of breath and states her pain is currently controlled with pain medication. She is being admitted for pain management and further evaluation of possible post obstructive pneumonia. Hospital Course Pt. found to have above mentioned pleural effusion but refused thoracentesis. However, improved clinically from respiratory standpoint w/ breathing therapy alone. Did grow gram positive cocci in blood. Was on vancomycin for this. Pt. stabilized from clinical standpoint and wanted to go home. Will go home on clindamycin for gram (+) cocci. Before d/c, established DNR desires of patient and family and placed this order. Advised family to clearly document this prior to each admit in the future. Home Meds Active Scripts Albuterol Sulfate* (Proair HFA*) 8.5 Gm Hfa.aer.ad, 2 PUFF INH Q4H Y for WHEEZING AND SOB for 30 Days, #1 INHALER 3 Refills Prov:DERRELL GRANDE MD 11/20/16 Clindamycin Hcl* (Clindamycin Hcl*) 300 Mg Capsule, 300 MG PO Q8 for 10 Days, # 30 CAP 0 Refills Prov:DERRELL GRANDE MD 11/20/16 Salmeterol Xinaf/Fluticasone* (Advair*) 250-50 Diskus Inhaler, 1 INH INH BID for 30 Days, #1 INHALER 3 Refills Prov:DERRELL GRANDE MD 11/20/16 Metoprolol Succinate* (Toprol XL*) 50 Mg Tab.er.24h, 50 MG PO DAILY for 30 Days , #30 TAB 3 Refills Prov:DERRELL GRANDE MD 11/20/16 Amlodipine Besylate* (Amlodipine Besylate*) 5 Mg Tablet, 5 MG PO DAILY for 30 Days, #30 TAB 3 Refills Prov:DERRELL GRANDE MD 11/20/16 Pantoprazole* (Pantoprazole*) 40 Mg Tabec, 40 MG PO BID@06,18 for 30 Days Prov:EVERETT ESCOBEDO MD 12/20/15 Reported Medications Ferrous Sulfate* (Ferrous Sulfate*) 325 Mg Tabec, 325 MG PO BID, TAB 10/26/16 Olmesartan Medoxomil (Benicar) 40 Mg Tablet, 40 MG PO DAILY, #30 TAB 10/26/16 Exemestane* (Exemestane*) 25 Mg Tablet, 25 MG PO DAILY, TAB 11/25/15 Everolimus (Afinitor) 10 Mg Tablet, 10 MG PO DAILY, #30 TAB 11/25/15 Alprazolam* (Alprazolam*) 0.25 Mg Tablet, 0.25 MG PO DAILY, TAB 04/22/15 Acetaminophen-Codeine* (Acetaminophen-Cod #3*) 300-30 Mg Tab, 1 TAB PO DAILY for PAIN, TAB 04/22/15 Follow-up Plan F/u w/ Dr. Shearer 1-2 weeks f/u w/ Dr. Peck 1-2 weeks Pending Labs Laboratory Tests Test 11/20/16 05:26 Blood Urea Nitrogen 19mg/dl (7-20) Creatinine 0.77mg/dl (0.44-1.00) DERRELL GRANDE MD Nov 20, 2016 11:17
[2016-11-20] MEDS ORDERED: VANCOMYCIN 1 GM in NS 250 ML IVPB SCH (12:00)
== END 2016-11-20 13:45 | disposition home or self-care (01) | DRG 194 ==
LOC: E/R 10:17 → MS2 13:23
PROVIDERS: ADMIT Internal Medicine; ATTEND Internal Medicine
DX: J18.9 Pneumonia, unspecified organism (principal); C78.00 Secondary malignant neoplasm of unspecified lung; C78.7 Secondary malignant neoplasm of liver and intrahepatic bile duct; J90 Pleural effusion, not elsewhere classified; C79.51 Secondary malignant neoplasm of bone; B96.89 Other specified bacterial agents as the cause of diseases classified elsewhere; S22.31XA Fracture of one rib, right side, initial encounter for closed fracture; Z91.81 History of falling; Z85.3 Personal history of malignant neoplasm of breast; I10 Essential (primary) hypertension; X50.1XXA Overexertion from prolonged static or awkward postures, initial encounter
CPT/HCPCS: 36415; 71010; 71100; 71260; 72128; 80053; 82565; 83605; 84484; 84520; 85025; 85610; 85730; 87040; 93005; 96365; 96375; 97162; J1720; J2270; J2405; J3370; J7030; J7050; Q9967

== ENCOUNTER 2019-04-02 06:14 | Emergency (ER) | payer MEDICARE, OTHER ==
[~2019-04-02] VITALS: Ht 152.4 cm; Wt 59.0 kg
[~2019-04-02 06:14] MED LIST changes: -ACET1TAB40 PO; +ADV25050 INH; +ALBU8.5H8 INH; +AMLO-145 PO; +CLIN300C10 PO; +HYDR2TAB36 PO; +METO-319 PO; +OLME40TA13 PO; -OLME40TA14 PO; +OXYC10TA45 PO
[2019-04-02 06:20] VITALS: Ht 152.4 cm; Wt 59.0 kg
[2019-04-02] MEDS ORDERED: ONDANSETRON 4 MG INJ IV STA (06:21)
[2019-04-02] MEDS ORDERED: morphine 4 MG/ML VIAL IV STA (06:21)
[2019-04-02] MEDS ORDERED: SOD CHLORIDE 0.9% 1,000 ML IV STA (06:21)
[2019-04-02] MEDS ORDERED: HYDROmorphONE 2 MG/ML SYG IV STA (08:30)
[2019-04-02] MEDS ORDERED: HYDR-3980 PO (08:32)
[2019-04-02] MEDS ORDERED: NALO4SPR NS (08:32)
[2019-04-02] MEDS ORDERED: DOCU-144 PO (08:32)
[2019-04-02 08:47] VITALS: BP 140/74; PULSE 65; RESP 18
--- NOTE | 2019-04-02 09:19 | ERD ---
ER Documentation Chief Complaint Chief Complaint Lt flank pain since 2300 last night, never h/o similar pain, no dysuria HPI Patient is a 78-year-old female with a history of breast cancer who presents with flank pain. She has left-sided flank pain that started last night. It is a constant and sharp pain which she rates as a 10 out of 10. She had dysuria as well. She has no hematuria. She denies abdominal pain. She was brought in by ambulance. She has never had this in the past and has no history of kidney stones. She has had no treatment as of yet. ROS All systems reviewed and are negative except as per history of present illness. Medications Home Meds Active Scripts Docusate Sodium* (Colace*) 100 Mg Capsule, 100 MG PO TID, #30 CAP Prov:MARYAM CHOUDHARY MD 04/02/19 Naloxone HCl nasal spray (Narcan 4 mg/0.1 mL nasal) 4 Mg [place], 4 MG NS .Q2-3MIN for OPIOID OVERDOSE, #2 SPRAY 0 Refills [place] 0.1 mL into one nostril. Repeat with second device into other nostril after 2-3 minutes if no or minimal response Prov:MARYAM CHOUDHARY MD 04/02/19 Hydrocodone/Acetaminophen ([place] 10-325 Tablet) 1 Each Tablet, 1 TAB PO Q6H PRN for PAIN, #12 TAB Prov:MARYAM CHOUDHARY MD 04/02/19 Albuterol Sulfate* (Proair HFA*) 8.5 Gm Hfa.aer.ad, 2 PUFF INH Q4H PRN for WHEEZING AND SOB for 30 Days, #1 INHALER 3 Refills Prov:DERRELL GRANDE MD 11/20/16 Hydromorphone Hcl* (Dilaudid*) 2 Mg Tablet, 1 MG PO Q4H PRN for BREAKTHROUGH PAIN for 30 Days, #60 TAB 0 Refills Prov:DERRELL GRANDE MD 11/20/16 Clindamycin Hcl* (Clindamycin Hcl*) 300 Mg Capsule, 300 MG PO Q8 for 10 Days, #30 CAP 0 Refills Prov:DERRELL GRANDE MD 11/20/16 Salmeterol Xinaf/Fluticasone* (Advair*) 250-50 Diskus Inhaler, 1 INH INH BID for 30 Days, #1 INHALER 3 Refills Prov:DERRELL GRANDE MD 11/20/16 Oxycodone Hcl* (Oxycontin*) 10 Mg Tab.sr.12h, 10 MG PO BID for 30 Days, #60 TAB 0 Refills Prov:DERRELL GRANDE MD 11/20/16 Metoprolol Succinate* (Toprol XL*) 50 Mg Tab.er.24h, 50 MG PO DAILY for 30 Days, #30 TAB 3 Refills Prov:DERRELL GRANDE MD 11/20/16 Amlodipine Besylate* (Amlodipine Besylate*) 5 Mg Tablet, 5 MG PO DAILY for 30 Days, #30 TAB 3 Refills Prov:DERRELL GRANDE MD 11/20/16 Pantoprazole* (Pantoprazole*) 40 Mg Tabec, 40 MG PO BID@06,18 for 30 Days Prov:EVERETT ESCOBEDO MD 12/20/15 Reported Medications Ferrous Sulfate* (Ferrous Sulfate*) 325 Mg [place]ec, 325 MG PO BID, TAB 10/26/16 Olmesartan Medoxomil (Benicar) 40 Mg Tablet, 40 MG PO DAILY, #30 TAB 10/26/16 Exemestane* (Exemestane*) 25 Mg Tablet, 25 MG PO DAILY, TAB 11/25/15 Everolimus (Afinitor) 10 Mg Tablet, 10 MG PO DAILY, #30 TAB 11/25/15 Alprazolam* (Alprazolam*) 0.25 Mg Tablet, 0.25 MG PO DAILY, TAB 04/22/15 Allergies Allergies: Coded Allergies: erythromycin base (Verified Allergy, Unknown, upset stomach, 11/25/15) tetracycline (Verified Allergy, Unknown, upset stomach, 11/25/15) PMhx/Soc History of Surgery: Yes (HYSTERECTOMY. LAPCHOLY) Anesthesia Reaction: No Hx Neurological Disorder: No Hx Respiratory Disorders: No Hx Cardiac Disorders: Yes (HTN ) Hx Psychiatric Problems: No Hx Miscellaneous Medical Probl: Yes (METASTATIC LUNG CA, HTN, BREAST CA, CHOLECYSTECTOMY, FALLS, GI BLEED) Hx Alcohol Use: No Hx Substance Use: No Hx Tobacco Use: No Smoking Status: Never smoker FmHx Family History: No diabetes Physical Exam Vitals Vital Signs Date Temp Pulse Resp B/P (MAP) Pulse Ox O2 O2 Flow FiO2 Time Delivery Rate 04/02/19 98.0 65 18 140/74 95 Room Air 08:47 (96) 04/02/19 97.5 63 20 150/71 96 Room Air 06:45 (97) 04/02/19 97.0 64 20 154/68 100 06:20 (96) Physical Exam Const: Moderate distress secondary to pain Head: Atraumatic Eyes: Normal Conjunctiva ENT: Normal External Ears, Nose and Mouth. Neck: Full range of motion. No meningismus. Resp: Clear to auscultation bilaterally Cardio: Regular rate and rhythm, no murmurs Abd: Soft, non tender, non distended. Normal bowel sounds Skin: No petechiae or rashes Back: Left-sided flank tenderness to palpation Ext: No cyanosis, or edema Neur: Awake and alert Psych: Normal Mood and Affect Result Diagram: 04/02/19 0632 04/02/19 0632 Results 24 hrs Laboratory Tests Test 04/02/19 06:32 04/02/19 08:07 White Blood Count 8.3 10^3/ul Red Blood Count 3.81 10^6/ul Hemoglobin 12.7 g/dl Hematocrit 37.5 % Mean Corpuscular Volume 98.4 fl Mean Corpuscular Hemoglobin 33.3 pg Mean Corpuscular Hemoglobin Concent 33.9 g/dl Red Cell Distribution Width 13.5 % Platelet Count 166 10^3/UL Mean Platelet Volume 10.2 fl Immature Granulocytes % 0.700 % Neutrophils % 77.6 % Lymphocytes % 13.3 % Monocytes % 7.6 % Eosinophils % 0.2 % Basophils % 0.6 % Nucleated Red Blood Cells % 0.0 /100WBC Immature Granulocytes # 0.060 10^3/ul Neutrophils # 6.4 10^3/ul Lymphocytes # 1.1 10^3/ul Monocytes # 0.6 10^3/ul Eosinophils # 0.0 10^3/ul Basophils # 0.1 10^3/ul Nucleated Red Blood Cells # 0.0 10^3/ul Sodium Level 144 mmol/L Potassium Level 3.9 mmol/L Chloride Level 108 mmol/L Carbon Dioxide Level 26 mmol/L Anion Gap 10 Blood Urea Nitrogen 21 mg/dl Creatinine 1.14 mg/dl Est Glomerular Filtrat Rate mL/min mL/min Glucose Level 134 mg/dl Calcium Level 9.4 mg/dl Total Bilirubin 1.1 mg/dl Direct Bilirubin 0.00 mg/dl Indirect Bilirubin 1.1 mg/dl Aspartate Amino Transf (AST/SGOT) 39 IU/L Alanine Aminotransferase (ALT/SGPT) 27 IU/L Alkaline Phosphatase 113 IU/L Total Protein 7.5 g/dl Albumin 4.1 g/dl Globulin 3.40 g/dl Albumin/Globulin Ratio 1.20 Lipase 80 U/L Urine Color YELLOW Urine Clarity CLEAR Urine pH 6.0 Urine Specific [place] 1.012 Urine Ketones TRACE mg/dL Urine Nitrite NEGATIVE mg/dL Urine Bilirubin NEGATIVE mg/dL Urine Urobilinogen NEGATIVE mg/dL Urine Leukocyte Esterase TRACE Jt/ul Urine Microscopic RBC 43 /HPF Urine Microscopic WBC 7 /HPF Urine Bacteria FEW /HPF Urine Hemoglobin 2+ mg/dL Urine Glucose NEGATIVE mg/dL Urine Total Protein NEGATIVE mg/dl Current Medications Medications Dose Sig/Burak Start Time Status Last (Trade) Ordered Route PRN Stop Time Admin Dose Reason Admin Sodium 1,000 ml @ Q1H STAT 04/02/19 DC 04/02/19 Chloride 1,000 mls/hr IV 06:21 06:32 04/02/19 07:20 Morphine 4 mg ONCE STAT 04/02/19 DC 04/02/19 Sulfate IV 06:21 06:32 (morphine) 04/02/19 06:22 Ondansetron 4 mg ONCE STAT 04/02/19 DC 04/02/19 HCl (Zofran IV 06:21 06:32 Inj) 04/02/19 06:22 1 mg ONCE STAT 04/02/19 DC 04/02/19 Hydromorphone IV 08:30 08:40 HCl 04/02/19 08:31 (Dilaudid) Procedures/MDM CT abdomen and pelvis read by radiology shows hydronephrosis without obvious stone. Patient is a 78-year-old female presents with acute left-sided flank pain. Laboratory studies were basically normal. Urinalysis shows hematuria but no obvious sign of infection. CT scan shows hydronephrosis but no signs of kidney stone at this time. This could be related to a passed kidney stone versus another source of her hydronephrosis. I do not think this is pyelonephritis. I do not see signs of severe infection. I do not believe the patient requires inpatient admission at this time. I believe outpatient treatment is appropriate but the patient should follow-up closely with the primary doctor within 24 to 48 hours as well as Dr. Ulloa from urology given the hydronephrosis. A copy of laboratory studies and CT scan report were given to the patient prior to discharge. The patient will be discharged with a prescription for [place], Narcan, and Colace. She can follow-up and can return if symptoms worsen. Departure Diagnosis: Primary Impression: Hydronephrosis Hydronephrosis type: unspecified Qualified Codes: N13.30 - Unspecified hydronephrosis Additional Impression: Flank pain Condition: Fair Patient Instructions: Hydronephrosis Adult, Flank Pain, Uncertain Cause Referrals: PAMELA ULLOA MD Additional Instructions: Call your primary care doctor TOMORROW for an appointment during the next 1-2 days.See the doctor sooner or return here if your condition worsens before your appointment time. MARYAM CHOUDHARY MD Apr 02, 2019 09:19
== END 2019-04-02 08:57 | disposition home or self-care (01) ==
LOC: E/R 06:14
DX: N13.30 Unspecified hydronephrosis (principal); I10 Essential (primary) hypertension; Z85.3 Personal history of malignant neoplasm of breast
CPT/HCPCS: 74176; 80053; 81001; 83690; 85025; 96374; 96375; 99285; J1170; J2270; J2405; J7030